=== PATIENT | male | born 1980 | race Caucasian/White ===

== ENCOUNTER 2017-10-15 22:23 | Emergency (ER) | payer OTHER ==
[2017-10-15 23:00] VITALS: BP 136/93
[2017-10-16] MEDS ORDERED: HYDROcodone/APAP 7.5/325MG 1 TAB TABLET PO ONE
[2017-10-16] MEDS ORDERED: HYDR-971 PO (00:07)
[2017-10-16] MEDS ORDERED: NAPR-683 PO (00:07)
--- NOTE | 2017-10-16 00:12 | PHYS DOC ---
General Chief Complaint: UPPER EXTREMITY INJURY Stated Complaint: MECHANICAL FALL, RT HAND INJURY Time Seen by MD: 22:59 Source: patient Exam Limitations: no limitations Problems: History of Present Illness Initial Comments 36-year-old male comes emergency Department complaining of right hand injury. Patient states that prior to arrival he was entering a pool at [facility] when he slipped falling onto his right outstretched hand. States he cannot recall whether his hand was supine or prone but experienced pain across the dorsum of his right hand. Initially he thought he had probably bruised it however has had a few episodes of severe pain and now there is bruising and swelling. Denies numbness tingling weakness or radiating symptoms patient is normally healthy no daily medications. Onset: this evening Severity: moderate Pain/Injury Location: right hand Method of Injury: fell Modifying Factors: worse with jarring, worse with movement, improves with rest Allergies: Coded Allergies: No Known Drug Allergies (Unverified , 10/16/17) Past Medical History Medical History: no pertinent history Surgical History: noncontributory Social History Smoker: non-smoker Alcohol: none Drugs: none Review of Systems Constitutional: denies chills, denies diaphoresis, denies fever, denies malaise Respiratory: denies cough, denies shortness of breath Cardiovascular: denies chest pain, denies palpitations Gastrointestinal: denies nausea, denies vomiting Genitourinary: denies frequency, denies hematuria Musculoskeletal: see HPI Skin: see HPI Psychiatric/Neurological: see HPI Physical Exam General Appearance: WD/WN, no apparent distress Neck: non-tender, supple Cardiovascular/Respiratory: normal peripheral pulses, no respiratory distress Wrist: normal inspection, non-tender, no evidence of injury (presurgical) Hand: bone tenderness, ecchymosis, soft tissue tenderness, swelling Neurologic/Tendon: normal sensation, normal motor functions, normal tendon functions, responds to pain, no evidence tendon injury Psychiatric: alert, oriented x 3 Skin: warm/dry (ecchymosis of the dorsum of her hand) Orders, Labs, Meds Right hand: Mildly displaced fracture of the proximal aspect of the right fourth metacarpal. Interpreted by me Ulnar gutter splint placed by RN, neurovascularly intact after splint placed and checked by me. Departure Time of Disposition: 00:09 Disposition: 01 HOME, SELF-CARE Diagnosis: right fourth metacarpal fracture Condition: GOOD Patient Instructions: Hand Fracture, Metacarpals, [id number], RICE - Routine Care for Injuries, [id number] Additional Instructions: RICE, see handout. No use of right hand until cleared by orthopedics. Wear splint except when bathing. A Tylenol 3 starter pack has been dispensed to you. Take 1-2 every 6 hours as needed for pain. Prescription: Naprosyn, [place] 5 mg quantity 20 Take medications with food to avoid GI upset, nausea and vomiting. Take [id number] stool softeners and increase fluid intake while taking [place] to prevent constipation. You will need to follow-up with an orthopedic surgeon. [facility] orthopedics: [phone], call Wednesday morning to schedule follow-up appointment. Note--they may refer you to a hand specialist. Return to ED as needed. MARLA PATRICK DO Oct 16, 2017 00:12
[2017-10-16] MEDS ORDERED: HYDROcodone/APAP 7.5/325MG 1 TAB TABLET ONE (00:38)
[2017-10-16] MEDS ORDERED: ACETAMINOPHEN/CODEINE 300/30MG 4TABLET STARTPACK. PO ONE ×4 (00:39→01:00)
--- NOTE | 2017-10-16 08:21 | RAD ---
Three-view right hand study History: Slipped and fell tonight. Right hand pain. Injury in the fourth metacarpal region. Findings: There is a nondisplaced oblique fracture of the proximal metaphysis and shaft of the fourth metacarpal bone. No angulation is seen. No osteolytic process or dislocation is seen. IMPRESSION: Posttraumatic acute fracture of the fourth metacarpal bone.
== END 2017-10-16 00:58 | disposition home or self-care (01) ==
LOC: ER 22:23
DX: S62.324A Displaced fracture of shaft of fourth metacarpal bone, right hand, initial encounter for closed fracture (principal); W01.0XXA Fall on same level from slipping, tripping and stumbling without subsequent striking against object, initial encounter; Y93.89 Activity, other specified; Y99.8 Other external cause status; Y92.59 Other trade areas as the place of occurrence of the external cause
CPT/HCPCS: 29125; 73130; 99284

== ENCOUNTER 2018-11-08 16:09 | Emergency (ER) | payer OTHER ==
[~2018-11-08] VITALS: Ht 182.9 cm; Wt 121.0 kg
[~2018-11-08 16:09] MED LIST: HYDR-3165 PO; NAPR-683 PO
[2018-11-08] MEDS ORDERED: ONDANSETRON PF 4 MG/2 ML VIAL. IV ONE (16:30)
[2018-11-08] MEDS ORDERED: IV NORMAL SALINE 1,000ML 1,000 ML IV SCH (16:30)
[2018-11-08] MEDS ORDERED: ONDANSETRON PF 4 MG/2 ML VIAL. ONE (16:35)
[2018-11-08 16:55] LABS: BASO % 0 % (0-3); EOS % 0 % (0-3); HEMATOCRIT 50.5 % (39.0-53.0); HEMOGLOBIN 17.5 g/dL (13.0-17.5); LYMPH # 0.9 x10^3/uL (1.0-4.8); LYMPH % 8 % (24-48); MEAN CORPUSCULAR HEMOGLOBIN 31 pg (25-35); MEAN CORPUSCULAR HGB CONC 35 g/dL (31-37); MEAN CORPUSCULAR VOLUME 88 fL (79-100); MONO # 0.4 x10^3/uL (0.0-1.1); MONO % 4 % (0-9); NEUT # 10.3 x10^3uL (1.8-7.7); NEUT % 88 % (31-73); PLATELET COUNT 278 x10^3/uL (140-400); RED BLOOD COUNT 5.76 x10^6/uL (4.30-5.70); RED CELL DISTRIBUTION WIDTH 13.6 % (11.5-14.5); WHITE BLOOD COUNT 11.7 x10^3/uL (4.0-11.0)
[2018-11-08 17:08] LABS: ALBUMIN 4.4 g/dL (3.4-5.0); ALBUMIN/GLOBULIN RATIO 1.2 (1.0-1.7); CALCIUM 9.8 mg/dL (8.5-10.1); CREATININE 1.2 mg/dL (0.7-1.3); GFR 67.4; POTASSIUM 3.8 mmol/L (3.5-5.1); TOTAL BILIRUBIN 0.4 mg/dL (0.2-1.0); TOTAL PROTEIN 8.1 g/dL (6.4-8.2)
--- NOTE | 2018-11-08 17:10 | RAD ---
EXAM: CT Abdomen and Pelvis without IV contrast CLINICAL HISTORY: LEFT FLANK PAIN, ABDOMINAL PAIN TO LEFT GROIN COMPARISON: none TECHNIQUE: Helical CT of the abdomen and pelvis without intravenous contrast. Axial, coronal and sagittal reformatted images were generated. PQRS compliance statement - One or more of the following individualized dose reduction techniques were utilized for this study: 1. Automated exposure control 2. Adjustment of the mA and/or kV according to patient size 3. Use of iterative reconstruction technique FINDINGS: Lack of intravenous contrast limits evaluation of solid organs, vasculature, and lymph nodes. Lower chest: Patchy opacities at the peripheral right lower lobe likely atelectasis. Abdomen and Pelvis: Diffuse hepatic hypoattenuation suggests hepatic steatosis. Gallbladder is normal. No biliary ductal dilatation. Spleen is unremarkable. Adrenal glands and pancreas are unremarkable. A 5 mm calculus is seen at the proximal left ureter. No definite renal lesion. Mild left hydronephrosis and proximal left hydroureter. No right hydronephrosis or hydroureter. No right renal tract calculus. Appendix is normal. No small or large bowel dilatation. Moderate colonic stool content. No abdominal pelvic ascites. No abdominal or pelvic lymphadenopathy. There is normal in caliber. Small fat-containing periumbilical hernia. Bones: Osseous structures are unremarkable. IMPRESSION: 1. A 5 mm proximal left ureteral calculus results in mild hydronephrosis and proximal left hydroureter. 2. Hepatic hypoattenuation, may be seen with hepatic steatosis. 3. Small fat-containing periumbilical hernia. Electronically signed by: Monty Valenzuela MD (11/08/2018 5:07 PM) [facility]
[2018-11-08] MEDS ORDERED: KETOROLAC 30 MG/ML VIAL. ONE (17:15)
[2018-11-08] MEDS ORDERED: HYDROmorphone PF 1 MG/ML DISP.SYRIN IV ONE (17:30)
[2018-11-08] MEDS ORDERED: TAMSULOSIN 0.4 MG CAP.ER.24H. PO ONE (17:30)
[2018-11-08] MEDS ORDERED: IV NORMAL SALINE 1,000ML 1,000 ML IV ONE (17:30)
[2018-11-08] MEDS ORDERED: KETOROLAC 30 MG/ML VIAL. IV ONE (17:30)
--- NOTE | 2018-11-08 17:36 | PHYS DOC ---
Past History Past Medical History: No Pertinent History (NAPOLEON JUAN MD) Past Surgical History: Other (NAPOLEON JUAN MD) Alcohol Use: None Drug Use: None (NAPOLEON JUAN MD) Adult General Chief Complaint Chief Complaint: flank pain HPI HPI Patient is a 37 year old male who presents with complaining of left flank and left groin pain. Patient complaining of sudden onset of left flank pain at 12: 30 as a constant and sharp pain associated with nausea and 3 episodes of vomiting. Patient said the pain gradually localized in left groin and testicle and rated his pain 9/10. Patient states he was not able to urinate. Patient denies recent dehydration, fever and chills, dysuria and hematuria. Patient states she had 4 episodes of kidney stone 6 years ago with different symptoms and presenting tachycardia and tachypnea stone again. (NAPLOEON JUAN MD) Review of Systems Review of Systems Constitutional: Denies fever or chills [] Eyes: Denies change in visual acuity, redness, or eye pain [] HENT: Denies nasal congestion or sore throat [] Respiratory: Denies cough or shortness of breath [] Cardiovascular: No additional information not addressed in HPI [] GI: Reports abdominal pain, nausea, vomiting, denies bloody stools or diarrhea [ ] : Denies dysuria or hematuria 1 reports flank pain[] Musculoskeletal: Denies back pain or joint pain [] Integument: Denies rash or skin lesions [] Neurologic: Denies headache, focal weakness or sensory changes [] Endocrine: Denies polyuria or polydipsia [] All other systems were reviewed and found to be within normal limits, except as documented in this note. (NAPOLEON JUAN MD) Current Medications Current Medications Current Medications Medications (Trade) Dose Ordered Sig/Hansa Start Time Stop Time Status Last Admin Dose Admin Fentanyl Citrate (Fentanyl 2ml Vial) 100 mcg STK-MED ONCE 11/08/18 16:35 11/08/18 16:36 DC Ketorolac Tromethamine (Toradol 30mg Vial) 30 mg STK-MED ONCE 11/08/18 17:15 11/08/18 17:16 DC Ondansetron HCl (Zofran) 4 mg STK-MED ONCE 11/08/18 16:35 11/08/18 16:36 DC Sodium Chloride 1,000 ml @ 1,000 mls/hr Q1H 11/08/18 16:30 11/08/18 17:29 11/08/18 16:37 1,000 MLS/HR (NAPOLEON JUAN MD) Allergies Allergies Allergies Coded Allergies Type Severity Reaction Last Updated Verified No Known Drug Allergies 10/16/17 No (NAPOLEON JUNA MD) Physical Exam Physical Exam Constitutional: Well developed, well nourished, moderate distress, non-toxic appearance. [] HENT: Normocephalic, atraumatic, oropharynx moist.] Eyes: PERRLA, EOMI, conjunctiva normal, no discharge. [] Neck: Normal range of motion, no tenderness, supple, no stridor. [] Cardiovascular:Heart rate regular rhythm, no murmur [] Lungs & Thorax: Bilateral breath sounds clear to auscultation [] Abdomen: Bowel sounds normal, soft, no tenderness, no masses, no pulsatile masses. [Genital exam with present of admitting coordinator did not show testicular tenderness or sign of torsion.] Skin: Warm, dry, no erythema, no rash. [] Back: No tenderness, no CVA tenderness. [] Extremities: No tenderness, no cyanosis, no clubbing, ROM intact, no edema. [] Neurologic: Alert and oriented X 3, normal motor function, normal sensory function, no focal deficits noted. [] Psychologic: Affect normal, judgement normal, mood normal. [] (NAPOLEON JUAN MD) Current Patient Data Vital Signs Vital Signs Date Time Temp Pulse Resp B/P (MAP) Pulse Ox O2 Delivery O2 Flow Rate FiO2 11/08/18 17:16 82 24 169/105 (126) 99 Room Air 11/08/18 16:13 98.1 Lab Results Laboratory Tests Test 11/08/18 16:32 White Blood Count 11.7 x10^3/uL (4.0-11.0) H Red Blood Count 5.76 x10^6/uL (4.30-5.70) H Hemoglobin 17.5 g/dL (13.0-17.5) Hematocrit 50.5 % (39.0-53.0) Mean Corpuscular Volume 88 fL (79-100) Mean Corpuscular Hemoglobin 31 pg (25-35) Mean Corpuscular Hemoglobin Concent 35 g/dL (31-37) Red Cell Distribution Width 13.6 % (11.5-14.5) Platelet Count 278 x10^3/uL (140-400) Neutrophils (%) (Auto) 88 % (31-73) H Lymphocytes (%) (Auto) 8 % (24-48) L Monocytes (%) (Auto) 4 % (0-9) Eosinophils (%) (Auto) 0 % (0-3) Basophils (%) (Auto) 0 % (0-3) Neutrophils # (Auto) 10.3 x10^3uL (1.8-7.7) H Lymphocytes # (Auto) 0.9 x10^3/uL (1.0-4.8) L Monocytes # (Auto) 0.4 x10^3/uL (0.0-1.1) Eosinophils # (Auto) 0.0 x10^3/uL (0.0-0.7) Basophils # (Auto) 0.0 x10^3/uL (0.0-0.2) Sodium Level 141 mmol/L (136-145) Potassium Level 3.8 mmol/L (3.5-5.1) Chloride Level 103 mmol/L (98-107) Carbon Dioxide Level 24 mmol/L (21-32) Anion Gap 14 (6-14) Blood Urea Nitrogen 18 mg/dL (8-26) Creatinine 1.2 mg/dL (0.7-1.3) Estimated GFR (Cockcroft-Gault) 67.4 BUN/Creatinine Ratio 15 (6-20) Glucose Level 126 mg/dL (70-99) H Calcium Level 9.8 mg/dL (8.5-10.1) Total Bilirubin 0.4 mg/dL (0.2-1.0) Aspartate Amino Transferase (AST) 24 U/L (15-37) Alanine Aminotransferase (ALT) 46 U/L (16-63) Alkaline Phosphatase 59 U/L (46-116) Total Protein 8.1 g/dL (6.4-8.2) Albumin 4.4 g/dL (3.4-5.0) Albumin/Globulin Ratio 1.2 (1.0-1.7) (NAPOLEON JUAN MD) EKG EKG [] (NAPOLEON JUAN MD) Radiology/Procedures Radiology/[place] [address] IMAGING REPORT Signed PATIENT: ADALGISA FOLEY ACCOUNT: [id number] : 1980 LOCATION: ER AGE: 37 SEX: M EXAM STATUS: REG ER ORD. PHYSICIAN: NAPOLEON JUAN MD REASON: left flank pain with radiation to left groin PROCEDURE: CT ABDOMEN PELVIS WO CONTRAST EXAM: CT Abdomen and Pelvis without IV contrast CLINICAL HISTORY: LEFT FLANK PAIN, ABDOMINAL PAIN TO LEFT GROIN COMPARISON: none TECHNIQUE: Helical CT of the abdomen and pelvis without intravenous contrast. Axial, coronal and sagittal reformatted images were generated. PQRS compliance statement - One or more of the following individualized dose reduction techniques were utilized for this study: 1. Automated exposure control 2. Adjustment of the mA and/or kV according to patient size 3. Use of iterative reconstruction technique FINDINGS: Lack of intravenous contrast limits evaluation of solid organs, vasculature, and lymph nodes. Lower chest: Patchy opacities at the peripheral right lower lobe likely atelectasis. Abdomen and Pelvis: Diffuse hepatic hypoattenuation suggests hepatic steatosis. Gallbladder is normal. No biliary ductal dilatation. Spleen is unremarkable. Adrenal glands and pancreas are unremarkable. A 5 mm calculus is seen at the proximal left ureter. No definite renal lesion. Mild left hydronephrosis and proximal left hydroureter. No right hydronephrosis or hydroureter. No right renal tract calculus. Appendix is normal. No small or large bowel dilatation. Moderate colonic stool content. No abdominal pelvic ascites. No abdominal or pelvic lymphadenopathy. There is normal in caliber. Small fat-containing periumbilical hernia. Bones: Osseous structures are unremarkable. IMPRESSION: 1. A 5 mm proximal left ureteral calculus results in mild hydronephrosis and proximal left hydroureter. 2. Hepatic hypoattenuation, may be seen with hepatic steatosis. 3. Small fat-containing periumbilical hernia. Electronically signed by: Monty Bullard MD (11/08/2018 5:07 PM) [employer] DICTATED AND SIGNED BY: MONTY BULLARD MD DATE: 11/08/18 4710 CC: TAHIR MONTANO; NAPOLEON JUAN MD ~ (NAPOLEON JUAN MD) Course & Med Decision Making Course & Med Decision Making Pertinent Labs and Imaging studies reviewed. (See chart for details) Evaluation of patient in ER showed 37-year-old male patient presented with complaining of left groin pain. Patient had left flank pain and nausea and vomiting earlier today. Patient had 5 mm left ureter stone with moderate hydronephrosis. Patient treated with IV fluid, Zofran, fentanyl, Toradol , Dilaudid and Flomax with improvement of his pain. Labs and UA is pending. Patient care transferred to Dr. Fontanez at 1800. (NAPOLEON JUAN MD) Course & Med Decision Making The CT scan does show a 5 mm stone in the proximal left ureter. Patient's pain has been controlled in the ED with Dilaudid. I discussed the patient with Melonie , the nurse practitioner for the urology service and she believes the patient can go home at this time. He will call and make an appointment with their office this week. The patient would like to go home. I will give him a prescription for [place] 5/325 as well as Flomax. He is stable for discharge at this time. (JEAN PAUL FONTANEZ DO) Dragon Disclaimer Dragon Disclaimer This electronic medical record was generated, in whole or in part, using a voice recognition dictation system. (NAPOLEON JUAN MD) Departure Departure: Impression: Primary Impression: Renal colic on left side Additional Impression: Ureterolithiasis Disposition: HOME, SELF-CARE Condition: STABLE Referrals: TAHIR MONTANO (PCP) Patient Instructions: Kidney Stones, [id number] Scripts Tamsulosin Hcl (FLOMAX) 0.4 Mg Cap.er.24h 1 CAP PO DAILY for kidney stone for 14 Days, #14 CAP 11 Refills Prov: JEAN PAUL FONTANEZ DO 11/08/18 Hydrocodone Bit/Acetaminophen ([place] 5-325 TABLET) 1 Each Tablet 1-2 TAB PO PRN Q6HRS PRN for PAIN, #20 TAB 0 Refills Prov: JEAN PAUL FONTANEZ DO 11/08/18 Problem Qualifiers NAPOLEON JUAN MD Nov 08, 2018 17:36 JEAN PAUL FONTANEZ DO Nov 08, 2018 19:58
[2018-11-08 19:00] VITALS: BP 148/101
[2018-11-08] MEDS ORDERED: diphenhydrAMINE 50 MG/ML VIAL IVP ONE (19:00)
[2018-11-08 19:18] LABS: BACTERIA,URINE 0 /HPF (0-FEW); BILIRUBIN,URINE NEG (NEG); CLARITY,URINE HAZY; COLOR,URINE YELLOW; GLUCOSE,URINE NEG (NEG); NITRITE,URINE NEG (NEG); RBC,URINE 20-40 /HPF (0-2); SQUAMOUS EPITHELIAL CELL,UR OCC /LPF; UROBILINOGEN,URINE 0.2 mg/dL (0.2 mg/dL); WBC,URINE OCC /HPF (0-4)
[2018-11-08] MEDS ORDERED: TAMS0.4C97 PO (19:56)
[2018-11-08] MEDS ORDERED: HYDR-3165 PO (19:56)
== END 2018-11-08 20:14 | disposition home or self-care (01) ==
LOC: ER 16:09
DX: N13.2 Hydronephrosis with renal and ureteral calculous obstruction (principal); K42.9 Umbilical hernia without obstruction or gangrene; R11.2 Nausea with vomiting, unspecified
CPT/HCPCS: 36415; 74176; 76870; 80053; 81001; 85025; 96361; 96374; 96375; 99284; J1170; J1200; J1885; J2405; J3010; J7030

== ENCOUNTER 2018-11-13 11:44 | Emergency (ER) | payer OTHER ==
[~2018-11-13] VITALS: Ht 182.9 cm; Wt 121.0 kg
[~2018-11-13 11:44] MED LIST changes: +TAMS0.4C97 PO
[2018-11-13 12:23] LABS: BASO % 1 % (0-3); EOS # 0.1 x10^3/uL (0.0-0.7); EOS % 2 % (0-3); HEMATOCRIT 45.6 % (39.0-53.0); HEMOGLOBIN 16.1 g/dL (13.0-17.5); LYMPH # 1.2 x10^3/uL (1.0-4.8); LYMPH % 23 % (24-48); MEAN CORPUSCULAR HEMOGLOBIN 31 pg (25-35); MEAN CORPUSCULAR HGB CONC 35 g/dL (31-37); MEAN CORPUSCULAR VOLUME 88 fL (79-100); MONO # 0.5 x10^3/uL (0.0-1.1); MONO % 10 % (0-9); NEUT # 3.4 x10^3uL (1.8-7.7); NEUT % 64 % (31-73); PLATELET COUNT 231 x10^3/uL (140-400); RED CELL DISTRIBUTION WIDTH 13.5 % (11.5-14.5); WHITE BLOOD COUNT 5.3 x10^3/uL (4.0-11.0)
[2018-11-13 12:34] LABS: ALBUMIN 3.7 g/dL (3.4-5.0); CALCIUM 9.2 mg/dL (8.5-10.1); CREATININE 1.2 mg/dL (0.7-1.3); GFR 67.4; POTASSIUM 3.9 mmol/L (3.5-5.1); TOTAL BILIRUBIN 0.6 mg/dL (0.2-1.0); TOTAL PROTEIN 7.4 g/dL (6.4-8.2)
--- NOTE | 2018-11-13 12:38 | PHYS DOC ---
Past History Past Medical History: No Pertinent History Past Surgical History: Other Alcohol Use: None Drug Use: None Adult General Chief Complaint Chief Complaint: FLANK PAIN HPI HPI 37-year-old male returns to the emergency room with continued flank pain. The patient was seen in this facility 5 days ago was diagnosed with 5 mm kidney stone. The patient has had reasonable control of his pain with his [place], but the pain has not gone away. He said more intense pain today. He does not know if he has passed the stone. He denies fever or chills. Review of Systems Review of Systems Constitutional: Denies fever or chills [] Eyes: Denies change in visual acuity, redness, or eye pain [] HENT: Denies nasal congestion or sore throat [] Respiratory: Denies cough or shortness of breath [] Cardiovascular: No additional information not addressed in HPI [] GI: Denies abdominal pain, nausea, vomiting, bloody stools or diarrhea [] : Denies dysuria or hematuria [] Musculoskeletal: flank pain, low back pain [] Integument: Denies rash or skin lesions [] Neurologic: Denies headache, focal weakness or sensory changes [] Endocrine: Denies polyuria or polydipsia [] All other systems were reviewed and found to be within normal limits, except as documented in this note. Allergies Allergies Allergies Coded Allergies Type Severity Reaction Last Updated Verified hydromorphone Allergy Mild 11/13/18 Yes Physical Exam Physical Exam Constitutional: Well developed, well nourished, no acute distress, non-toxic appearance. [] HENT: Normocephalic, atraumatic, bilateral external ears normal, oropharynx moist, no oral exudates, nose normal. [] Eyes: PERRLA, EOMI, conjunctiva normal, no discharge. [] Neck: Normal range of motion, no tenderness, supple, no stridor. [] Cardiovascular:Heart rate regular rhythm, no murmur [] Lungs & Thorax: Bilateral breath sounds clear to auscultation [] Abdomen: Bowel sounds normal, soft, no tenderness, no masses, no pulsatile masses. [] Skin: Warm, dry, no erythema, no rash. [] Back: mild CVA tenderness. [] Extremities: No tenderness, no cyanosis, no clubbing, ROM intact, no edema. [] Neurologic: Alert and oriented X 3, normal motor function, normal sensory function, no focal deficits noted. [] Psychologic: Affect normal, judgement normal, mood normal. [] Current Patient Data Vital Signs Vital Signs Date Time Temp Pulse Resp B/P (MAP) Pulse Ox O2 Delivery O2 Flow Rate FiO2 11/13/18 12:03 97.8 94 18 97 Room Air EKG EKG [] Radiology/Procedures Radiology/Procedures [] Impressions: Examination: CT ABDOMEN PELVIS WO CONTRAST History: Left flank pain, kidney stone reevaluation from 11/08/18 Comparison/Correlation: 11/08/2018 CT abdomen and pelvis without contrast Findings: Axial images of the abdomen and pelvis were obtained without contrast. Sagittal and coronal reformatted images provided. Minimal linear scarring or atelectasis at the lateral right lung base noted. Significant fatty infiltration of the liver is present. Spleen is unremarkable. Pancreas is normal. Adrenal glands are normal. Sludge is noted within the gallbladder. Right collecting system is unremarkable. Left ureteral calculus is present at the L4 superior endplate level measuring 0.6 cm diameter. Proximal hydronephrosis and hydroureter is noted. Edematous appearance of the left renal cortex diffusely is noted. Urinary bladder is unremarkable. No bowel obstruction or extraluminal gas. No inflammatory changes about the cecum. Appendix is normal. Very small umbilical hernia contains omental fat. 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 No malalignment. Impression: Mild distal progression of the left obstructive ureteral calculus since the prior exam. Fatty infiltration liver. 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 PQRS Compliance Statement: One or more of the following individualized dose reduction techniques were utilized for this examination: 1. Automated exposure control 2. Adjustment of the mA and/or kV according to patient size 3. Use of iterative reconstruction technique Electronically signed by: Maverick Osman MD (11/13/2018 1:00 PM) [facility] Course & Med Decision Making Course & Med Decision Making Pertinent Labs and Imaging studies reviewed. (See chart for details) The patient's x-ray shows mild progression of the 6 mm obstructing stone. He continues to have hydronephrosis and hydroureter. His urine is not infected. His creatinine is normal. I will provide a referral number for the patient to make an appointment with urology tomorrow. He is stable for discharge at this time. [] Dragon Disclaimer Dragon Disclaimer This electronic medical record was generated, in whole or in part, using a voice recognition dictation system. Departure Departure: Impression: Primary Impression: Ureterolithiasis Disposition: HOME, SELF-CARE Condition: STABLE Referrals: TAHIR MONTANO (PCP) Patient Instructions: Kidney Stones, [id number] Additional Instructions: Please call the [facility] Urology Department at [phone]. Tell them you have been in the ED 2x and that the stone has not moved very much. JEAN PAUL FONTANEZ DO Nov 13, 2018 12:38
--- NOTE | 2018-11-13 13:03 | RAD ---
Examination: CT ABDOMEN PELVIS WO CONTRAST History: Left flank pain, kidney stone reevaluation from 11/08/18 Comparison/Correlation: 11/08/2018 CT abdomen and pelvis without contrast Findings: Axial images of the abdomen and pelvis were obtained without contrast. Sagittal and coronal reformatted images provided. Minimal linear scarring or atelectasis at the lateral right lung base noted. Significant fatty infiltration of the liver is present. Spleen is unremarkable. Pancreas is normal. Adrenal glands are normal. Sludge is noted within the gallbladder. Right collecting system is unremarkable. Left ureteral calculus is present at the L4 superior endplate level measuring 0.6 cm diameter. Proximal hydronephrosis and hydroureter is noted. Edematous appearance of the left renal cortex diffusely is noted. Urinary bladder is unremarkable. No bowel obstruction or extraluminal gas. No inflammatory changes about the cecum. Appendix is normal. Very small umbilical hernia contains omental fat. 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 No malalignment. Impression: Mild distal progression of the left obstructive ureteral calculus since the prior exam. Fatty infiltration liver. 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 PQRS Compliance Statement: One or more of the following individualized dose reduction techniques were utilized for this examination: 1. Automated exposure control 2. Adjustment of the mA and/or kV according to patient size 3. Use of iterative reconstruction technique Electronically signed by: Maverick Osman MD (11/13/2018 1:00 PM) [facility]
[2018-11-13 13:11] LABS: BILIRUBIN,URINE NEG (NEG); CLARITY,URINE CLEAR; COLOR,URINE YELLOW; GLUCOSE,URINE NEG (NEG); UROBILINOGEN,URINE 0.2 mg/dL (0.2 mg/dL)
[2018-11-13 13:12] LABS: BACTERIA,URINE 0 /HPF (0-FEW); NITRITE,URINE NEG (NEG); WBC,URINE 0 /HPF (0-4)
[2018-11-13 13:45] VITALS: BP 126/85
== END 2018-11-13 13:26 | disposition home or self-care (01) ==
LOC: ER 11:44
DX: N13.2 Hydronephrosis with renal and ureteral calculous obstruction (principal); Z88.5 Allergy status to narcotic agent
CPT/HCPCS: 36415; 74176; 80053; 81001; 85025; 99284